=== PATIENT | female | born 1995 | race Caucasian/White ===

== ENCOUNTER 2020-07-16 04:00 | Emergency (ER) | payer BC, OTHER ==
[2020-07-16 05:23] LABS: HIV (1/2) Antibody/Antigen Non-Reactive (NonReactive); HIV 1/2 INDEX 0.11 S/CO (<1.00); Hep C IgG Ab Non-Reactive (NonReactive); Hep C Index 0.08 S/CO (0-0.79)
[2020-07-16 05:31] LABS: HBSAB Concentration 47.77 mIU/mL; Hep B Surf AB Reactive (NonReactive)
== END 2020-07-16 04:30 | disposition home or self-care (01) ==
LOC: ERS 04:00
DX: Z77.21 Contact with and (suspected) exposure to potentially hazardous body fluids (principal)
CPT/HCPCS: 36415; 86706; 86803; 87389; 99283

== ENCOUNTER 2021-02-24 03:08 | Emergency (ER) | payer BC, OTHER ==
[2021-02-24] MEDS ORDERED: Boostrix 0.5 ML (Tdap) VIAL ONE ×2 (03:18→03:21)
[2021-02-24 04:08] LABS: HIV (1/2) Antibody/Antigen Non-Reactive (NonReactive); Hep C IgG Ab Non-Reactive (NonReactive); Hep C Index 0.11 S/CO (0-0.79)
[2021-02-24 04:14] LABS: HBSAB Concentration 45.56 mIU/mL; Hep B Surf AB Reactive (NonReactive)
== END 2021-02-24 03:35 | disposition home or self-care (01) ==
LOC: ERS 03:08
DX: Z77.21 Contact with and (suspected) exposure to potentially hazardous body fluids (principal)
CPT/HCPCS: 36416; 86706; 86803; 87389; 90471; 90715

== ENCOUNTER 2022-05-19 00:37 | Emergency (ER) | payer OTHER, SELFPAY ==
[2022-05-19] MEDS ORDERED: Ketorolac Tromethamine 30 MG/ML VIAL ONE (01:06)
== END 2022-05-19 01:51 | disposition home or self-care (01) ==
LOC: ERS 00:37
DX: S50.02XA Contusion of left elbow, initial encounter (principal); W01.0XXA Fall on same level from slipping, tripping and stumbling without subsequent striking against object, initial encounter
CPT/HCPCS: 96372; J1885